=== PATIENT | male | born 1940 | race Caucasian/White ===

== ENCOUNTER 2017-08-16 12:59 | Emergency (ER) | payer OTHER ==
[~2017-08-16] VITALS: Ht 170.2 cm; Wt 86.2 kg
[2017-08-16 13:15] VITALS: BP 136/66
[2017-08-16 14:01] LABS: Basophils # (auto) 0 uL; Basophils % (auto) 0.4 % (0.0-2.0); Eosinophils # (auto) 0 uL; Lymphocytes # (auto) 1.3 uL; Monocytes # (auto) 0.6 uL; Neutrophils # (auto) 7.8 uL; Platelet Count (auto) 282 10^3/uL (140-450); Red Cell Distribution Width 14.3 % (11.8-14.3)
[2017-08-16 14:03] LABS: Hematocrit 44.1 % (41.0-53.0); Hemoglobin 14.7 g/dL (13.5-17.5); Lymphocytes % (auto) 13.2 % (10.0-50.0); Mean Corpuscular Hemoglobin 26.9 pg (28.0-32.0); Mean Corpuscular Hgb Conc. 33.3 g/dL (32.0-36.0); Mean Corpuscular Volume 80.6 fL (80.0-100.0); Monocytes % (auto) 6.2 % (0.0-12.0); Neutrophils % (auto) 80.2 % (37.0-80.0); Red Blood Cells 5.47 10^6/uL (4.5-5.90); White Blood Cell 9.8 10^3/uL (4.4-10.8)
[2017-08-16 14:25] LABS: Alanine Aminotransferase 36 U/L (16-61); Albumin 3.4 g/dL (3.4-5.0); Alkaline Phosphatase 77 U/L (45-117); Anion Gap 13 (5-15); Aspartate Aminotransferase 17 U/L (15-37); BUN/Creatinine Ratio 12.5; Bilirubin, Total 1.2 mg/dL (0.2-1.0); Blood Urea Nitrogen 10 mg/dL (7-18); Calcium 8.9 mg/dL (8.5-10.1); Carbon Dioxide 24 mmol/L (21-32); Chloride 101 mmol/L (98-107); GFR African American 122 mL/min; GFR Non-African American 100 mL/min; Glucose 122 mg/dL (74-106); Magnesium 2.6 mg/dL (1.6-2.6); Potassium 3.7 mmol/L (3.5-5.1); Sodium 138 mmol/L (136-145); Total Protein 7.7 g/dL (6.4-8.2)
[2017-08-16] MEDS ORDERED: SODIUM CHLORIDE 0.9% 1,000 ML IV ONE (15:33)
[2017-08-16] MEDS ORDERED: PIPERACILLIN-TAZOB 3.375GM 50 ML IV ONE (15:45)
[2017-08-16] MEDS ORDERED: VANCOMYCIN 1GM/250ML 250 ML IV ONE (15:45)
[2017-08-16 16:13] LABS: INR 1.03 (0.9-1.15); Partial Thromboplastin Time 32.8 sec (22.64-33.71); Prothrombin Time 11.2 sec (9.37-12.3)
== END 2017-08-16 19:00 | disposition left against medical advice (07) ==
LOC: ER 12:59 → EDBD 12:59 → ER 19:00
DX: K57.32 Diverticulitis of large intestine without perforation or abscess without bleeding (principal); I10 Essential (primary) hypertension; Z53.29 Procedure and treatment not carried out because of patient's decision for other reasons
CPT/HCPCS: 36415; 71045; 74176; 80053; 83605; 83735; 84484; 85025; 85610; 85730; 87040; 93005

== ENCOUNTER 2017-10-30 14:14 | Emergency (ER) | payer OTHER ==
[~2017-10-30] VITALS: Ht 170.2 cm; Wt 86.2 kg
[2017-10-30 14:51] LABS: Eosinophils # (auto) 0 uL
[2017-10-30 14:52] LABS: Basophils # (auto) 0.1 uL; Basophils % (auto) 0.7 % (0.0-2.0); Eosinophils % (auto) 0.2 % (0.0-7.0); Hematocrit 44.5 % (41.0-53.0); Hemoglobin 14.8 g/dL (13.5-17.5); Lymphocytes # (auto) 1.2 uL; Lymphocytes % (auto) 13.3 % (10.0-50.0); Mean Corpuscular Hemoglobin 27.2 pg (28.0-32.0); Mean Corpuscular Hgb Conc. 33.4 g/dL (32.0-36.0); Mean Corpuscular Volume 81.6 fL (80.0-100.0); Monocytes # (auto) 0.3 uL; Monocytes % (auto) 3.3 % (0.0-12.0); Neutrophils # (auto) 7.7 uL; Neutrophils % (auto) 82.5 % (37.0-80.0); Nucleated Red Blood Cells % 0.1 %; Platelet Count (auto) 306 10^3/uL (140-450); Red Blood Cells 5.45 10^6/uL (4.5-5.90); Red Cell Distribution Width 15.1 % (11.8-14.3); White Blood Cell 9.3 10^3/uL (4.4-10.8)
[2017-10-30 15:21] LABS: Albumin 3.7 g/dL (3.4-5.0); BUN/Creatinine Ratio 12.7; Bilirubin, Total 0.7 mg/dL (0.2-1.0); Calcium 9.1 mg/dL (8.5-10.1); Total Protein 7.3 g/dL (6.4-8.2)
[2017-10-30] MEDS ORDERED: SODIUM CHLORIDE 0.9% 1,000 ML IV ONE (15:36)
[2017-10-30] MEDS ORDERED: MORPHINE SULFATE 4 MG/ML SYR/VIAL IV ONE (15:45)
[2017-10-30] MEDS ORDERED: PROMETHAZINE HCL 25 MG/ML 1ML IV ONE (15:45)
[2017-10-30] MEDS ORDERED: cefTRIAXone 1GM/10ml IVPUSH 10 ML IV ONE (16:45)
[2017-10-30] MEDS ORDERED: metroNIDAZOLE 500MG/100ML 100 ML IV ONE (16:45)
[2017-10-30 20:10] VITALS: BP 158/93
[2017-10-30] MEDS ORDERED: NALBUPHINE HCL 10 MG/1ml INJECTION IV ONE (20:30)
[2017-10-30] MEDS ORDERED: ONDANSETRON HCL 4 MG/2 ML VIAL IV ONE (20:45)
[2017-10-30] MEDS ORDERED: HYDROcodone-ACET 5/325MG TAB PO PRN (21:45)
[2017-10-30] MEDS ORDERED: ONDANSETRON HCL 4 MG/2 ML VIAL IV PRN (21:45)
[2017-10-30] MEDS ORDERED: MORPHINE SULFATE 4 MG/ML SYR/VIAL IV PRN (21:45)
[2017-10-30] MEDS ORDERED: SODIUM CHLORIDE 0.9% 1,000 ML IV SCH (21:45)
[2017-10-30] MEDS ORDERED: ACETAMINOPHEN 500 MG TAB PO PRN (21:45)
[2017-10-30 23:02] LABS: Urine Bacteria NONE SEEN /hpf (None Seen); Urine Blood Negative /uL (Negative); Urine Mucus MANY (None Seen); Urine Specific Gravity 1.033 (1.001-1.035); Urine WBC 9 /hpf (0 - 3)
[2017-10-31] MEDS ORDERED: cefTRIAXone 1GM/10ml IVPUSH 10 ML IV SCH (09:00)
== END 2017-10-30 22:46 | disposition home or self-care (01) ==
LOC: ER 14:14 → EDBD 14:14 → ER 22:46
DX: K57.92 Diverticulitis of intestine, part unspecified, without perforation or abscess without bleeding (principal); K42.9 Umbilical hernia without obstruction or gangrene; N40.0 Benign prostatic hyperplasia without lower urinary tract symptoms; M47.896 Other spondylosis, lumbar region; I10 Essential (primary) hypertension
CPT/HCPCS: 36415; 74176; 80053; 81001; 82150; 83690; 83735; 84484; 85025; 93005; 96361; 96365; 96375; 99285; J2270; J2300; J2405; J2550; J3490; J7030

== ENCOUNTER 2023-02-09 14:14 | Emergency (ER) | payer OTHER ==
[~2023-02-09] VITALS: Ht 172.7 cm; Wt 78.5 kg
[2023-02-09] MEDS ORDERED: SODIUM CHLORIDE 0.9% 500 ML IVB ONE (14:45)
[2023-02-09] MEDS ORDERED: MORPHINE SULFATE 4 MG/ML SYR/VIAL IV ONE (14:45)
[2023-02-09] MEDS ORDERED: ONDANSETRON HCL 4 MG/2 ML VIAL IV ONE (14:45)
[2023-02-09] MEDS ORDERED: PANTOPRAZOLE 40 MG/10 ML VIAL INJ IV ONE (14:45)
[2023-02-09 15:07] LABS: Basophils # (auto) 0.1 10 ^3/uL (0-0.2); Basophils % (auto) 0.6 % (0.0-2.0); Eosinophils # (auto) 0 10 ^3/uL (0-0.8); Eosinophils % (auto) 0.1 % (0.0-7.0); Hematocrit 44.4 % (41.0-53.0); Hemoglobin 14.7 g/dL (13.5-17.5); Lymphocytes # (auto) 1.5 10 ^3/uL (0.4-5.4); Lymphocytes % (auto) 14.8 % (10.0-50.0); Mean Corpuscular Hemoglobin 27.1 pg (28.0-32.0); Mean Corpuscular Hgb Conc. 33.2 g/dL (32.0-36.0); Mean Corpuscular Volume 81.7 fL (80.0-100.0); Monocytes # (auto) 0.3 10 ^3/uL (0-1.3); Monocytes % (auto) 2.6 % (0.0-12.0); Neutrophils # (auto) 8.2 10 ^3/uL (1.6-8.6); Neutrophils % (auto) 81.9 % (37.0-80.0); Red Blood Cells 5.43 10^6/uL (4.5-5.90)
[2023-02-09 15:24] LABS: Albumin 3.9 g/dL (3.4-5.0); Calcium 8.9 mg/dL (8.5-10.1); Magnesium 2.4 mg/dL (1.6-2.6); Potassium 3.8 mmol/L (3.5-5.1)
[2023-02-09 15:27] LABS: BUN/Creatinine Ratio 18.6 (10.0-20.0); Bilirubin, Total 1.1 mg/dL (0.2-1.0); Total Protein 7.1 g/dL (6.4-8.2)
[2023-02-09 16:32] LABS: Urine Bacteria NONE SEEN /hpf (None Seen); Urine Blood 3+ /uL (Negative); Urine Hyaline Cast FEW /lpf (0 - 2); Urine Mucus FEW (None Seen); Urine WBC 7 /hpf (0 - 3)
[2023-02-09 19:15] VITALS: BP 152/68
[2023-02-09] MEDS ORDERED: HYDROcodone-ACET 10/325MG TAB PO ONE (19:15)
== END 2023-02-09 19:22 | disposition home or self-care (01) ==
LOC: ER 14:14
DX: R10.32 Left lower quadrant pain (principal); R10.12 Left upper quadrant pain; R11.2 Nausea with vomiting, unspecified; R19.7 Diarrhea, unspecified; I10 Essential (primary) hypertension
CPT/HCPCS: 36415; 74176; 80053; 81001; 83690; 83735; 85025; 93005; 96361; 96374; 96375; 99285; C9113; J2270; J2405; J7040

== ENCOUNTER 2023-04-08 05:35 | Emergency (ER) | payer OTHER ==
[~2023-04-08] VITALS: Ht 172.7 cm; Wt 80.2 kg
[2023-04-08 07:22] LABS: Basophils # (auto) 0.1 10 ^3/uL (0-0.2); Basophils % (auto) 0.4 % (0.0-2.0); Eosinophils # (auto) 0 10 ^3/uL (0-0.8); Eosinophils % (auto) 0.1 % (0.0-7.0); Hematocrit 44.1 % (41.0-53.0); Hemoglobin 14.4 g/dL (13.5-17.5); Lymphocytes # (auto) 2.2 10 ^3/uL (0.4-5.4); Lymphocytes % (auto) 14.2 % (10.0-50.0); Mean Corpuscular Hemoglobin 26.9 pg (28.0-32.0); Mean Corpuscular Hgb Conc. 32.7 g/dL (32.0-36.0); Mean Corpuscular Volume 82.1 fL (80.0-100.0); Monocytes # (auto) 1.4 10 ^3/uL (0-1.3); Monocytes % (auto) 8.9 % (0.0-12.0); Neutrophils # (auto) 12.1 10 ^3/uL (1.6-8.6); Neutrophils % (auto) 76.4 % (37.0-80.0); Red Blood Cells 5.37 10^6/uL (4.5-5.90); Red Cell Distribution Width 15.4 % (11.8-14.3); White Blood Cell 15.8 10^3/uL (4.4-10.8)
[2023-04-08] MEDS ORDERED: KETOROLAC TROMETH 60MG/2ML VIAL IM ONE (07:30)
[2023-04-08 07:47] VITALS: TEMP 99
[2023-04-08 08:04] LABS: Alanine Aminotransferase 18 U/L (7-40); Albumin 4.4 g/dL (3.2-4.8); Alkaline Phosphatase 57 U/L (46-116); Anion Gap 7.3 (5-15); Aspartate Aminotransferase 8 U/L (13-40); Bilirubin, Total 1.7 mg/dL (0.2-1.0); Blood Urea Nitrogen 14 mg/dL (9-23); Calcium 9.3 mg/dL (8.7-10.4); Carbon Dioxide 24.7 mmol/L (20-30); Chloride 105 mmol/L (98-107); Glucose 118 mg/dL (74-106); Lipase 35 U/L (12-53); Potassium 3.5 mmol/L (3.5-5.1); Sodium 137 mmol/L (136-145); Total Protein 6.8 g/dL (5.7-8.2)
[2023-04-08 11:00] LABS: Urine Bacteria FEW /hpf (None Seen); Urine Blood 3+ /uL (Negative); Urine Clarity HAZY (Clear); Urine Color PINK (Yellow); Urine Mucus FEW (None Seen); Urine Protein, UAD 1+ (Negative); Urine Specific Gravity 1.022 (1.001-1.035); Urine Urobilinogen Normal (Negative); Urine WBC 80 /hpf (0 - 3); Urine pH 5.5 (5.0-8.0)
[2023-04-08 11:05] VITALS: PULSE 67; RESP 10; O2SAT 96
[2023-04-08] MEDS ORDERED: cefTRIAXone 1GM/50ML D5W 50 ML IV ONE (11:30)
[2023-04-08 16:05] VITALS: BP 122/43; PULSE 58; RESP 10; O2SAT 97
== END 2023-04-08 19:34 | disposition left against medical advice (07) ==
LOC: ER 05:35
DX: N13.2 Hydronephrosis with renal and ureteral calculous obstruction (principal); N39.0 Urinary tract infection, site not specified; R10.9 Unspecified abdominal pain; I10 Essential (primary) hypertension
CPT/HCPCS: 36415; 74176; 80053; 81001; 83690; 84484; 85025; 96365; 96372; 99285; J0696; J1885